=== PATIENT | female | born 2000 | race Hispanic/Latino ===

== ENCOUNTER 2022-01-14 11:38 | Emergency (ER) | payer SELFPAY ==
[2022-01-14] MEDS ORDERED: Ibuprofen 200 MG TAB ONE (12:55)
[2022-01-14] MEDS ORDERED: Acetaminophen 500 MG TAB ONE (12:55)
== END 2022-01-14 13:00 | disposition home or self-care (01) ==
LOC: CSHERS 11:38
DX: T23.271A Burn of second degree of right wrist, initial encounter (principal); I10 Essential (primary) hypertension; T31.0 Burns involving less than 10% of body surface; X19.XXXA Contact with other heat and hot substances, initial encounter
CPT/HCPCS: 99283

== ENCOUNTER 2023-11-18 10:17 | Outpatient (CLI) | payer OTHER | END 2023-11-18 10:18 | disposition home or self-care (01) | LOC: CSHULT 10:17 | PROVIDERS: ATTEND Family Medicine | DX: Z34.82 Encounter for supervision of other normal pregnancy, second trimester (principal) | CPT/HCPCS: 76805 ==

== ENCOUNTER 2024-01-26 06:27 | Inpatient (IN) | payer MEDICAID, OTHER ==
[2024-01-26] MEDS ORDERED: HYDROcodone/Acetaminophen 5/325 mg Tablet PO PRN ×2 (07:07→17:06)
[2024-01-26] MEDS ORDERED: Misoprostol 200 MCG TAB PR PRN (07:07)
[2024-01-26] MEDS ORDERED: Diphenoxylate HCl/Atropine Tablet PO PRN (07:07)
[2024-01-26] MEDS ORDERED: hydrALAZINE 20 MG/ML VIAL SLOW IVP PRN ×2 (07:07→17:06)
[2024-01-26] MEDS ORDERED: Methylergonovine 0.2 MG/ML VIAL IM PRN (07:07)
[2024-01-26] MEDS ORDERED: Carboprost 250 MCG/ML AMP IM PRN (07:07)
[2024-01-26] MEDS ORDERED: Tranexamic Acid 1,000 MG/10 ML VIAL IVP PRN (07:07)
[2024-01-26] MEDS ORDERED: Acetaminophen 500 MG TAB PO PRN (07:07)
[2024-01-26] MEDS ORDERED: Promethazine HCl 25 MG/ML VIAL IM PRN ×2 (07:07→17:06)
[2024-01-26] MEDS ORDERED: Lidocaine 1% (PF) 30 ML VIAL SC PRN (07:07)
[2024-01-26] MEDS ORDERED: Oxytocin 30 units/NS 500 ML 500 ML IV SCH (07:07)
[2024-01-26] MEDS: Oxytocin 30 units/NS 500 ML 500 ML IV SCH ×2 (07:38→14:56)
[2024-01-26] MEDS: Lactated Ringer's 1,000 ML IV SCH (07:38)
[2024-01-26 07:43] VITALS: BMI 30.6
[2024-01-26 08:36] LABS: Hematocrit 36.1 % (34.9-44.5); Hemoglobin 11.9 g/dL (12.0-15.5); Mean Corpuscular Hemoglobin 29.5 pg (27.0-33.0); Mean Corpuscular Volume 89.4 fl (81.6-98.3); Mean Platelet Volume 12.8 fl (7.4-10.4); Platelet Count 155 10x3/uL (150-450); RBC Distribution Width 13.2 % (11.5-14.5); Red Blood Cell (RBC) Count 4.04 10x6/uL (3.90-5.03); White Blood Cell (WBC) Count 7.2 10x3/uL (3.5-10.5)
[2024-01-26] MEDS: Oxytocin 30 units/NS 500 ML 500 ML ONE (08:37)
[2024-01-26 08:41] LABS: HBSAg Index 0.26 S/CO (0-0.99); Hep B Surf Ag - L&D Non-Reactive S/CO (NonReactive)
[2024-01-26 09:06] LABS: Syphilis Antibody Nonreactive (Nonreactive); Syphilis Antibody Index 0.05 S/CO (<1.00 Non-Reactive)
[2024-01-26] MEDS: fentaNYL 50 mcg/mL 1 mL Vial SLOW IVP PRN (10:25)
[2024-01-26] MEDS: Ondansetron PF 4 MG/2 ML Vial IVP PRN (12:26)
[2024-01-26] MEDS: Ibuprofen 800 MG TAB PO SCH ×2 (14:25→22:17)
[2024-01-26] MEDS ORDERED: Milk Of Magnesia 30 ML UDCUP PO PRN (17:06)
[2024-01-26] MEDS ORDERED: diphenhydrAMINE 25 MG CAP PO PRN (17:06)
[2024-01-26] MEDS ORDERED: Benzocaine-Menthol 82.5 ML CAN TOP PRN (17:06)
[2024-01-26] MEDS ORDERED: Ondansetron PF 4 MG/2 ML Vial IVP PRN (17:06)
[2024-01-26] MEDS ORDERED: Bisacodyl 10 MG SUPP PR PRN (17:06)
[2024-01-26] MEDS ORDERED: Lanolin Ointment 7 GM TUBE TOP PRN (17:06)
[2024-01-26] MEDS ORDERED: Boostrix 0.5 ML (Tdap) VIAL (>/=7 yrs of age) IM ONE (17:06)
[2024-01-26] MEDS: Ferrous Sulfate 325 MG TAB PO SCH (18:28)
[2024-01-26] MEDS: Docusate 100 MG CAP PO SCH (22:17)
[2024-01-27] MEDS: Prenatal Vitamin 1 TAB PO SCH (07:49)
[2024-01-27 11:05] VITALS: BP 111/65; TEMP 97.9
== END 2024-01-27 18:15 | disposition home or self-care (01) | DRG 805 ==
LOC: CSHLD 06:27 → CSHPED 16:45
PROVIDERS: ADMIT Family Medicine; ATTEND Family Medicine
PROC: 10E0XZZ Delivery of Products of Conception, External Approach (ICD-10-PCS; principal; 2024-01-26)
PROC: 0KQM0ZZ Repair Perineum Muscle, Open Approach (ICD-10-PCS; 2024-01-26)
PROC: 10907ZC Drainage of Amniotic Fluid, Therapeutic from Products of Conception, Via Natural or Artificial Opening (ICD-10-PCS; 2024-01-26)
DX: O26.643 Intrahepatic cholestasis of pregnancy, third trimester (principal); K83.1 Obstruction of bile duct; Z37.0 Single live birth; Z3A.37 37 weeks gestation of pregnancy; O70.1 Second degree perineal laceration during delivery
CPT/HCPCS: 36415; 85027; 86780; 86850; 86900; 86901; 87340; J2405; J2590; J3010; J7120